=== PATIENT | male | born 1965 | race Caucasian/White ===

== ENCOUNTER 2017-01-15 13:38 | Emergency (ER) | payer OTHER ==
[~2017-01-15] VITALS: Ht 180.3 cm; Wt 95.0 kg
[2017-01-15 13:42] VITALS: BP 101/59; TEMP 98.7; O2SAT 99
[2017-01-15 14:01] VITALS: RESP 18; TEMP 98.4
--- NOTE | 2017-01-15 14:01 | PD ---
HPI Chief Complaint: right hand injury. Time Seen by Provider: 14:01 Travel History International Travel<30 days: No Contact w/Intl Traveler<30days: No Traveled to known affect area: No History of Present Illness HPI 51-year-old male presents to the emergency department via EMS from workplace injury site. Patient works at a [employer] and he was trying to fix the machine when his right index finger was injured at the proximal aspect with a crushing type injury which almost completely amputated the finger. The finger is only held on by the medial skin. Patient has no movement, sensation, or blood flow to the distal index finger on the right hand. Patient is unsure of his last tetanus shot. He has no drug allergies. Has no other significant medical history. [facility] Social History Alcohol Use: Yes Tobacco Use: No Substance Use: No Allergies-Medications (Allergen,Severity, Reaction): Coded Allergies: No Known Allergies (Unverified , 01/15/17) Reported Meds & Prescriptions Reported Meds & Active Scripts Active Lortab (Hydrocodone-Acetaminophen) 5-325 Mg Tab 1-2 Tab PO Q6H PRN Keflex (Cephalexin) 500 Mg Cap 500 Mg PO Q6HR Review of Systems Except as stated in HPI: all other systems reviewed are Neg General / Constitutional: No: Fever Eyes: No: Visual changes HENT: No: Headaches Cardiovascular: No: Chest Pain or Discomfort Respiratory: No: Shortness of Breath Gastrointestinal: No: Abdominal Pain Genitourinary: No: Dysuria Musculoskeletal: No: Pain Skin: No Rash Neurologic: No: Weakness Psychiatric: No: Depression Endocrine: No: Polydipsia Hematologic/Lymphatic: No: Easy Bruising Physical Exam Narrative GENERAL: Patient appears in mild distress. SKIN: Warm and dry. Normal color. Normal turgor. Patient has almost complete amputation of the right index finger just above the PIP joint. The distal finger is cool to touch, and pale. HEAD: Atraumatic. Normocephalic. EYES: Pupils equal and round. No scleral icterus. No injection or drainage. ENT: No nasal bleeding or discharge. Mucous membranes pink and moist. Pharynx is normal. NECK: Trachea midline. Supple and nontender. CARDIOVASCULAR: Regular rate and rhythm. RESPIRATORY: No accessory muscle use. Clear to auscultation. Breath sounds equal bilaterally. MUSCULOSKELETAL: Extremities without clubbing, cyanosis, or edema. Patient is unable to move the right index finger has both extensor and flexor tendons of been lacerated. Bone is seen through the wound site. Bleeding is controlled with pressure dressing. Pain is actually minimal for the patient. No other significant injuries noted. NEUROLOGICAL: Awake and alert. No obvious cranial nerve deficits. Motor grossly within normal limits. Five out of 5 muscle strength in the arms and legs. Normal speech. PSYCHIATRIC: Appropriate mood and affect; insight and judgment normal. Data Data Last Documented VS Vital Signs Date Time Temp Pulse Resp B/P Pulse Ox O2 Delivery O2 Flow Rate FiO2 01/15/17 14:47 20 96 Room Air 01/15/17 14:01 98.4 01/15/17 13:42 82 101/59 Orders Complete Blood Count With Diff (01/15/17 14:05) Comprehensive Metabolic Panel (01/15/17 14:05) Prothrombin Time / Inr (Pt) (01/15/17 14:05) Act Partial Throm Time (Ptt) (01/15/17 14:05) Iv Access Insert/Monitor (01/15/17 14:05) Ecg Monitoring (01/15/17 14:05) Oximetry (01/15/17 14:05) NPO (01/15/17 14:05) Morphine Inj (Morphine Inj) (01/15/17 14:15) Ondansetron Inj (Zofran Inj) (01/15/17 14:15) Sodium Chloride 0.9% Flush (Ns Flush) (01/15/17 14:15) Cefazolin Inj (Ancef Inj) (01/15/17 14:15) Lidocai-Epi 1%-1:100,000 Inj (Xylocaine- (01/15/17 14:15) Labs Laboratory Tests Test 01/15/17 14:20 White Blood Count 12.7 TH/MM3 Red Blood Count 5.06 MIL/MM3 Hemoglobin 14.4 GM/DL Hematocrit 43.0 % Mean Corpuscular Volume 85.0 FL Mean Corpuscular Hemoglobin 28.5 PG Mean Corpuscular Hemoglobin 33.5 % Concent Red Cell Distribution Width 13.8 % Platelet Count 347 TH/MM3 Mean Platelet Volume 7.9 FL Neutrophils (%) (Auto) 69.6 % Lymphocytes (%) (Auto) 19.8 % Monocytes (%) (Auto) 4.8 % Eosinophils (%) (Auto) 4.6 % Basophils (%) (Auto) 1.2 % Neutrophils # (Auto) 8.9 TH/MM3 Lymphocytes # (Auto) 2.5 TH/MM3 Monocytes # (Auto) 0.6 TH/MM3 Eosinophils # (Auto) 0.6 TH/MM3 Basophils # (Auto) 0.1 TH/MM3 CBC Comment DIFF FINAL Differential Comment Prothrombin Time 10.6 SEC Prothromb Time International 1.0 RATIO Ratio Activated Partial 25.0 SEC Thromboplast Time Sodium Level 143 MEQ/L Potassium Level 3.9 MEQ/L Chloride Level 108 MEQ/L Carbon Dioxide Level 26.7 MEQ/L Anion Gap 8 MEQ/L Blood Urea Nitrogen 18 MG/DL Creatinine 1.17 MG/DL Estimat Glomerular Filtration 65 ML/MIN Rate Random Glucose 111 MG/DL Calcium Level 9.1 MG/DL Total Bilirubin 0.2 MG/DL Aspartate Amino Transf 20 U/L (AST/SGOT) Alanine Aminotransferase 35 U/L (ALT/SGPT) Alkaline Phosphatase 87 U/L Total Protein 7.3 GM/DL Albumin 3.9 GM/DL [facility] Medical Decision Making Medical Screen Exam Complete: Yes Emergency Medical Condition: Yes Differential Diagnosis Workplace injury. Right index finger amputation. Crush injury. Narrative Course Patient is medically stable at time of exam. Labs ordered CBC, CMP. IV access is obtained. Call was placed to Dr. Campos, the hand surgeon on-call, and the patient is discussed. Photograph of the wound is sent to Dr. Campos and he feels that the finger is not salvageable based on my exam and history and photograph. Patient is given 1 g Ancef IV. Partially Amputated finger is revised with complete amputation, and trimming of the bone closure. Please see procedure note. Patient refused IV morphine. Dressing is placed, and patient will be continued on Keflex 500 mg 4 times a day for the next 7 days. Patient is given Lortab 5/325 one tab every 6 hours when necessary pain #20. Patient is to use ice and keep the area clean and dry with dressing in place. Dressing is to remain in place until seen by the hand surgeon. Patient follow-up with Dr. Campos or whoever Worker's Comp. sets him up within 1 week. Patient can return to the emergency department anytime for worsening issues as discussed. Worker's Comp. forms are filled out for discharge. Procedures Procedure Narrative Partial amputation LOCATION: 90% Base of the right index finger LENGTH: 2 cm NUMBER OF STITCHES/ANNA: 4 interrupted vertical mattress, 4 simple interrupted REPAIR: The area of the laceration was prepped with Betadine and sterilely draped. The base of the amputation was infiltrated with 6 mL 1% lidocaine with epi. The wound was copiously irrigated and explored with evidence of both tendon injury and neurovascular injury. Remainder of the amputation was completed with a #11 blade. There was minimal bleeding. The remainder of the proximal phalanx was trimmed back using Ronguer forceps. The wound was closed using 4-0 Ethilon. This was a single layer repair. A sterile dressing of Xeroform, 4 x 4 padding, Melinda, and Pedro Luis wrap was applied. The patient was advised to keep the dressing clean and dry. Dressing should remain in place until seen by hand surgeon. Patient tolerated the procedure well. Diagnosis Primary Impression: Amputation of right index finger Referrals: Edwige Campos MD Patient Instructions: Finger Amputation (ED), General Instructions Additional Instructions: Dressing is placed, and patient will be continued on Keflex 500 mg 4 times a day for the next 7 days. Patient is given Lortab 5/325 one tab every 6 hours when necessary pain #20. Patient is to use ice and keep the area clean and dry with dressing in place. Dressing is to remain in place until seen by the hand surgeon. Patient follow-up with Dr. Campos or whoever Worker's Comp. sets him up within 1 week. Patient can return to the emergency department anytime for worsening issues as discussed. Worker's Comp. forms are filled out for discharge. Med/Other Pt SpecificInfo: Wound Care Scripts Hydrocodone-Acetaminophen (Lortab)5-325 Mg Tab1-2 Tab PO Q6H PRN (PAIN) #20 TAB Prov:Rakesh Carnes MD 01/15/17 Cephalexin (Keflex)500 Mg [id number] Mg PO Q6HR #21 CAP Prov:Rakesh Carnes MD 01/15/17 Disposition: 01 DISCHARGE HOME Condition: Stable Jm Valenzuela Jan 15, 2017 14:01
[2017-01-15] MEDS ORDERED: LIDOCAINE 1%/EPINEPHrine 1:100,000 SOLN 20 ML VIAL INFIL ONE (14:15)
[2017-01-15] MEDS ORDERED: MORPHINE SULFATE 4 MG/ML INJ IV PUSH ONE (14:15)
[2017-01-15] MEDS ORDERED: SODIUM CHLORIDE 0.9% FLUSH 10 ML FLUSH IV FLUSH PRN (14:15)
[2017-01-15] MEDS ORDERED: ONDANSETRON HCL 4 MG/2 ML VIAL IVP ONE (14:15)
[2017-01-15 14:46] LABS: AUTOMATED NEUTROPHIL # 8.9 TH/MM3 (1.8-7.7); BASOPHIL # 0.1 TH/MM3 (0-0.2); BASOPHIL % 1.2 % (0.0-2.0); EOSINOPHIL # 0.6 TH/MM3 (0-0.4); EOSINOPHIL % 4.6 % (0.0-4.0); HEMO FLAGS DIFF FINAL; LYMPH % 19.8 % (9.0-44.0); LYMPHOCYTE # 2.5 TH/MM3 (1.0-4.8); MEAN CORPUSCULAR HEMOGLOBIN 28.5 PG (27.0-34.0); MEAN CORPUSCULAR HGB CONC 33.5 % (32.0-36.0); MONO % 4.8 % (0.0-8.0); NEUT % 69.6 % (16.0-70.0); PLATELET COUNT 347 TH/MM3 (150-450); RED BLOOD COUNT 5.06 MIL/MM3 (4.50-5.90); RED CELL DISTRIBUTION WIDTH 13.8 % (11.6-17.2); WHITE BLOOD COUNT 12.7 TH/MM3 (4.0-11.0)
[2017-01-15 14:47] VITALS: RESP 20; O2SAT 96
[2017-01-15 14:54] LABS: PROTHROMBIN TIME - PATIENT 10.6 SEC (9.8-11.6)
[2017-01-15 15:09] LABS: ALT (GPT) 35 U/L (12-78); ANION GAP 8 MEQ/L (5-15); AST (GOT) 20 U/L (15-37); BICARBONATE 26.7 MEQ/L (21.0-32.0); BLOOD UREA NITROGEN 18 MG/DL (7-18); CHLORIDE 108 MEQ/L (98-107); GLOMERULAR FILTRATION RATE 65 ML/MIN (>89); POTASSIUM 3.9 MEQ/L (3.5-5.1); SODIUM (NA) 143 MEQ/L (136-145)
[2017-01-15 15:11] LABS: ALKALINE PHOSPHATASE 87 U/L (45-117); TOTAL BILIRUBIN ADULT 0.2 MG/DL (0.2-1.0)
--- NOTE | 2017-01-15 16:03 | PD ---
Data Data Last Documented VS Vital Signs Date Time Temp Pulse Resp B/P Pulse Ox O2 Delivery O2 Flow Rate FiO2 01/15/17 14:47 20 96 Room Air 01/15/17 14:01 98.4 01/15/17 13:42 82 101/59 Orders Complete Blood Count With Diff (01/15/17 14:05) Comprehensive Metabolic Panel (01/15/17 14:05) Prothrombin Time / Inr (Pt) (01/15/17 14:05) Act Partial Throm Time (Ptt) (01/15/17 14:05) Iv Access Insert/Monitor (01/15/17 14:05) Ecg Monitoring (01/15/17 14:05) Oximetry (01/15/17 14:05) NPO (01/15/17 14:05) Morphine Inj (Morphine Inj) (01/15/17 14:15) Ondansetron Inj (Zofran Inj) (01/15/17 14:15) Sodium Chloride 0.9% Flush (Ns Flush) (01/15/17 14:15) Cefazolin Inj (Ancef Inj) (01/15/17 14:15) Lidocai-Epi 1%-1:100,000 Inj (Xylocaine- (01/15/17 14:15) Labs Laboratory Tests Test 01/15/17 14:20 White Blood Count 12.7 TH/MM3 Red Blood Count 5.06 MIL/MM3 Hemoglobin 14.4 GM/DL Hematocrit 43.0 % Mean Corpuscular Volume 85.0 FL Mean Corpuscular Hemoglobin 28.5 PG Mean Corpuscular Hemoglobin 33.5 % Concent Red Cell Distribution Width 13.8 % Platelet Count 347 TH/MM3 Mean Platelet Volume 7.9 FL Neutrophils (%) (Auto) 69.6 % Lymphocytes (%) (Auto) 19.8 % Monocytes (%) (Auto) 4.8 % Eosinophils (%) (Auto) 4.6 % Basophils (%) (Auto) 1.2 % Neutrophils # (Auto) 8.9 TH/MM3 Lymphocytes # (Auto) 2.5 TH/MM3 Monocytes # (Auto) 0.6 TH/MM3 Eosinophils # (Auto) 0.6 TH/MM3 Basophils # (Auto) 0.1 TH/MM3 CBC Comment DIFF FINAL Differential Comment Prothrombin Time 10.6 SEC Prothromb Time International 1.0 RATIO Ratio Activated Partial 25.0 SEC Thromboplast Time Sodium Level 143 MEQ/L Potassium Level 3.9 MEQ/L Chloride Level 108 MEQ/L Carbon Dioxide Level 26.7 MEQ/L Anion Gap 8 MEQ/L Blood Urea Nitrogen 18 MG/DL Creatinine 1.17 MG/DL Estimat Glomerular Filtration 65 ML/MIN Rate Random Glucose 111 MG/DL Calcium Level 9.1 MG/DL Total Bilirubin 0.2 MG/DL Aspartate Amino Transf 20 U/L (AST/SGOT) Alanine Aminotransferase 35 U/L (ALT/SGPT) Alkaline Phosphatase 87 U/L Total Protein 7.3 GM/DL Albumin 3.9 GM/DL MDM Supervised Visit with OPAL: Yes Narrative Course The history, exam, and medical decision-making in the associated mid-level provider note were completed with my assistance. I reviewed and agree with the findings presented. I attest that I had a [id number] encounter with the patient on the same day, and personally performed and documented my assessment and findings in the medical record. *My assessment and Findings: 51-year-old right handed man who crushed his right index finger at work. Finger is nearly completely severed at the base, biceps small soft tissue attachments. It appears neurovascularly compromise. We spoke to the hand surgeon. Finger is not salvageable. It was resected and closed. Scripts No Active Prescriptions or Reported Meds Rakesh Carnes MD Jan 15, 2017 16:03
[2017-01-15] MEDS ORDERED: CEPH-460 PO (16:20)
[2017-01-15] MEDS ORDERED: HYDR-3533 PO (16:20)
[2017-01-15 17:18] VITALS: BP 170/84; PULSE 87; RESP 20; O2SAT 96
== END 2017-01-15 17:57 | disposition home or self-care (01) ==
LOC: NEPE 13:38
DX: S67.190A Crushing injury of right index finger, initial encounter (principal); Z89.021 Acquired absence of right finger(s); W31.89XA Contact with other specified machinery, initial encounter; Y93.89 Activity, other specified; Y92.63 Factory as the place of occurrence of the external cause; Y99.0 Civilian activity done for income or pay
CPT/HCPCS: 26951; 80053; 85025; 85610; 85730; 88302; 96365; 96366; 99285; J0690; 88305